=== PATIENT | male | born 1955 | race Native Hawaiian/Other Pacific Islander ===

== ENCOUNTER 2016-06-07 08:11 | Day surgery (SDC) | payer BC ==
[2016-06-03 11:11] LABS: POTASSIUM 4.5 mmol/L (3.6-5.2)
[2016-06-03 11:20] LABS: PARTIAL THROMBOPLASTIN TIME 22.6 SECONDS (24.5-33.6)
[~2016-06-07] VITALS: Ht 175.3 cm; Wt 68.0 kg
== END 2016-06-08 14:00 | disposition home or self-care (01) ==
LOC: OR 08:11
PROVIDERS: Student in an Organized Health Care Education/Training Program
PROC: 0FT44ZZ Resection of Gallbladder, Percutaneous Endoscopic Approach (ICD-10-PCS; principal; 2016-06-07)
DX: K80.10 Calculus of gallbladder with chronic cholecystitis without obstruction (principal)
CPT/HCPCS: 36415; 80053; 85610; 85730; J0690; J2001; J2270; J2405; J2704; J3010; J3490